=== PATIENT | male | born 1945 ===

== ENCOUNTER 2024-12-29 11:23 | Outpatient (AMB) | payer MEDICARE, SELFPAY ==
--- OUTSIDE RECORDS SUMMARY | 2024-12-27 07:59 | XMS_ITS | Encounter Summary ---
Author Organization [facility] Address [address] [place] [address] Care Team Providers Care Funeral Location Manager Name Role Phone Chana Rivera DO Primary Care Provider [phone] Reason for Referral * Imaging (Routine) - Authorized Specialty Diagnoses / Procedures Referred By Contac t Referred To Contact Radiology Diagnoses Lung nodules Procedures CT Chest wo Contrast Julio Maher MD [address] [place] [address] Phone: tel: fax: [facility] [address] [place] [address] Phone: tel: Referral ID Status Reason Start Date Expiration Date V isits Requested Visits Authorized [id number] Authorized 11/29/2024 11/29/2025 1 1 Reason for Visit * Imaging (Routine) - Authorized Specialty Diagnoses / Procedures Referred By Contac t Referred To Contact Radiology Diagnoses Lung nodules Procedures CT Chest wo Contrast Julio Maher MD [address] [place] [address] Phone: tel: fax: [facility] [address] [place] [address] Phone: tel: Referral ID Status Reason Start Date Expiration Date V isits Requested Visits Authorized [id number] Authorized 11/29/2024 11/29/2025 1 1 Encounter Details Date Type Department Care Team (Latest Contact Info) Description 12/27/2024 7:59 AM EST - 12/27/2024 11:59 PM EST Hospital Encounter [facility] [address] [place] [address] Lung nodules Discharge Disposition: Home or Self Care Social History Tobacco Use Types Packs/Day Years Used Date Smoking Tobacco: Former Cigarettes 0.8 Q uit: 04/09/2021 Smokeless Tobacco: Former Alcohol Use Standard Drinks/Week Comments Yes 2 (1 standard drink = 0.6 oz pur e alcohol) Sex and Gender Information Value Date Recorded Sex Assigned at Male 12/30/2023 9:50 AM EST Legal Sex Male 11:15 AM EST Gender Identity Male 12/30/2023 9:50 AM EST Sexual Orientation Straight 01/19/2024 9: 07 AM EST documented as of this encounter Medications at Time of Discharge albuterol HFA (PROAIR HFA ; PROVENTIL HFA ; VENTOLIN HFA) 90 mcg/actuation inhaler Inhale 2 Puffs into the lungs every 4 hours as needed for Cough or Wheezing. 06/06/2017 atorvastatin (LIPITOR) 20 mg tablet Take 1 tablet (20 mg total) by mouth 1 (one) time each day. 90 tablet 1 10/25/2024 cholecalciferol (VITAMIN D-3) 25 mcg (1,000 unit) tablet Take 1 Tablet by mouth daily. 05/27/2021 cyclobenzaprine (FLEXERIL) 10 mg tabletIndications: Spinal stenosis of lumbar region without neurogenic claudication Take 1 tablet (10 mg total) by mouth at bedtime as needed for muscle spasms. 30 tablet 1 11/25/2024 fluticasone-salmet lela (ADVAIR DISKUS) 250-50 mcg/dose diskus inhaler 10/13/2023 ibuprofen (ADVIL,MOTRIN) 600 mg tablet Take 1 tablet (600 mg total) by mouth every 6 (six) hours if needed for mild pain. 08/17/2024 lidocaine (LIDODERM) 5 % patch Apply 1 patch topically 1 (one) time each day. Remove & discard patch within 12 hours or as directed by . 30 each 11/29/2024 naproxen (NAPROSYN) 500 mg tablet Take 1 Tab by mouth 2 times daily as needed for Pain. With food 01/08/2018 sildenafiL (VIAGRA) 50 mg tablet Take 1 tablet (50 mg total) by mouth if needed for erectile dysfunction. 30 tablet 1 04/22/2024 documented as of this encounter Discharge Disposition Disposition Code Departure Means Destination Home or Self Care documented in this encounter Plan of Treatment Upcoming Encounters Date Type Department Care Team (Late st Contact Info) Description 01/02/2025 12:00 PM EST Evaluation [facility] [address] [facility] [address] [place] [phone] Rayray Brar, PT [address] [place] [address] 02/22/2025 1:00 PM EST Appointment [facility] Ultrasound [address] [place] [phone] 03/01/2025 9:30 AM EST Office Visit Pulmonology - [place] [address] [facility] [address] [place] [address] Julio Maher MD [address] [place] [phone] 03/08/2025 8:30 AM EST Office Visit Vascular Surgery - [place] [address] [facility] [address] [place] [phone] Jyothi Dacosta MD [address] [place] [phone] 04/24/2025 8:00 AM EDT Office Visit Internal Medicine - [facility] [address] [place] [address] Zbigniew Mccollum PA [address] [place] [address] Pending Results Name Type Priority Associated Diagnoses Date /Time CT Chest wo Contrast Imaging Routine Lung nodules 12/27/2024 8:22 AM EST Scheduled Orders Name Type Priority Associated Diagnoses Orde r Schedule CT Chest wo Contrast Imaging Routine Lung nodules Once for 1 Occurrences starting 12/27/2024 until 12/27/2024 documented as of this encounter Visit Diagnoses Diagnosis Lung nodules Other diseases of lung, not elsewhere classified documented in this encounter Additional Health Concerns Assessment Noted Time PHQ-9 Depression Total Score: 0 10/21/19 25 12:03 PM EDT documented as of this encounter Care Teams Funeral Location Manager Relationship Specialty Start Date End Date Chana Rivera DO [address] [place] [address] PCP - General Internal Medicine 12/23/23 documented as of this encounter
--- NOTE | 2024-12-29 11:25 | A.PHYSOV_ITS ---
Vital Signs 12/29/24 11:31 Height 5 ft 9.5 in Weight 175 lb BMI 25.5 Intake Visit Reasons: MRI followup Intake Note: Patient is a 79 year old male in office today to review MRI result. Ships Or Barges Loader Required: No Allergies No Known Allergies Allergy (Verified 12/29/24 11:26) HPI Comments Details: Mr. Sky is a 79-year-old male seen in evaluation today for right-sided low back and leg pain with paresthesias. Patient reports primarily right knee pain at a 7/10. He reports pain for the past week. Patient has been using ibuprofen for pain with good relief of his symptoms. Patient does have MRI from 2010 that does confirm moderate to severe spinal canal stenosis at L4-5, L5-S1. I ordered MRI of his lumbar spine and we are reviewing it in person today. Procedure: Right knee cortisone injection 12/29/2024 [facility] Surgical History (Updated 12/29/24 @ 11:29 by Sandra Araya MA) H/O hernia repair Social History (Updated 12/29/24 @ 11:30 by Sandra Araya MA) Household Members: Spouse Unable to assess alcohol history related to: Refusing to respond Patient Tobacco Use Status: Former Tobacco user Use of substances other than those prescribed or required for medical reasons: Yes Substance Use Type: Marijuana Review of Systems Narrative Low back pain with radiculopathy. No incontinence, saddle anesthesia urinary retention. Right knee pain, no locking or instability. Physical Exam Exam Exam: Lumbar Spine: Examination of his lumbar spine, there is no visible swelling or deformity. He is tender to lower lumbar facets. He is otherwise nontender. He has full range of motion of his lumbar spine. He does have an increase in pain with facet loading. Special Tests: Lhermittes sign was negative Heel Toe walk is normal Left straight leg raise: Negative Right straight leg raise: Negative Special tests Daphney test is negative Ganslen's test is negative SI Joint compression test negative Melvin test negative Piriformis stretch is negative Lower Extremities: Full range of motion bilateral lower extremities. He is tender to the medial joint line. No effusion. Full range of motion of his knee in flexion-extension. He has ligaments are intact. Negative Tammy test. His calf is soft and nontender. No calf pain or edema. Neuro: Sensation: Intact to lower extremities bilaterally Strength L2 (Psoas): 5/5 on the left and 5/5 on the right. L3 (Quads): 5/5 on the left and 5/5 on the right. L4 (Ant tibialis): 5/5 on the left and 5/5 on the right. L5 (EHL) 5/5 on the left and 5/5 on the right. S1 (Gastroc): 5/5 on the left and 5/5 on the right. DTR L4: (Patellar) Left 1 Right 1 S1: (Achilles) Left 1 Right 1 Babinski Downgoing No pathologic clonus. No involuntary movement. Vital Signs: BMI result Body Mass Index 25.5 Office Procedures AMB Knee Injection AMB Knee Injection Procedure Details: Right Knee injection: The risks, benefits and complications of the right knee injection were discussed with the patient including but not limited to increased serum glucose, infection, nerve pain, fat atrophy, pigment augmentation, bleeding and pain. All questions were answered to the patient's satisfaction. Verbal consent was obtained. The patient was eager to proceed. Using aseptic technique with Betadine, ethyl chloride was then used to desensitize the skin. Using a 22-gauge needle 40 mg of Kenalog and 3 mL 2% lidocaine were injected into the knee joint. A Band-Aid was applied. Patient tolerated the procedure well without immediate complication. Postinjection instructions were given. Knee Injection - : Right All charges added?: Procedure code (CPT) selection complete Office Meds Kenalog 40 mg/mL suspension for injection Performing Provider: RIKI Styles Performing Location: [facility] Administered by: RIKI Styles on 12/29/24 12:03 Dose Route Admin Location Dispensed Lot Number Expiration Date [facility] Supply Person 40 mg intra-articular 1 mL [id number] [employer] Total Dispensed Waste 1 mL 0 % lidocaine (PF) 20 mg/mL (2 %) injection solution Performing Provider: RIKI Styles Performing Location: [facility] Administered by: RIKI Styles on 12/29/24 12:03 Dose Route Admin Location Dispensed Lot Number Expiration Date [facility] Supply Person 60 mg intra-articular 50 mL [id number] Total Dispensed Waste 50 mL 0 % Assessment & Plan Assessment & Plan (1) Lumbar radiculopathy: Code(s): M54.16 - Radiculopathy, lumbar region Category: Medical (2) Lumbar spondylosis: Code(s): M47.816 - Spondylosis without myelopathy or radiculopathy, lumbar region Category: Medical (3) Primary localized osteoarthritis of right knee: Code(s): M17.11 - Unilateral primary osteoarthritis, right knee Category: Medical Plan Mr. Sky is a 79-year-old male seen in consultation today for lumbar radiculitis the right lower extremity. Patient reports his symptoms are improving. He is using ibuprofen once daily with mild relief. He is requesting a refill which I will prescribe today for twice a day. Patient should use the medication as needed as to preserve his kidney function. We will hold off on epidural injection. Patient reports increasing right knee pain. Today consented to right knee corticosteroid injection. He is given post-injection instructions, recommend: Moist heat compresses for 15 minutes 5 times daily. Continue low-impact activities such as walking, biking and swimming. We discussed the benefits of proper nutrition and exercise to maintain a healthy body weight to improve longevity and function. We also discussed the benefits of proper lifting techniques, core strengthening and proper posture. Thank you for allowing me to participate in the care of your patient. Orders: Orders AMB Knee Injection Today M17.11 - Unilateral primary osteoarthritis, right knee Medications: New ibuprofen 800 mg PO BID 60 tabs 3RF Coding Level of Care Code Tele Est Pt Level 4 (31950) Diagnoses Lumbar radiculopathy M54.16 Lumbar spondylosis M47.816 Primary localized osteoarthritis of right knee M17.11 CPT Codes AMB Knee Injection - Hip/Bursa Injection - : Right ([id number])
[2024-12-29 11:31] VITALS: BMI 25.5
--- OUTSIDE RECORDS SUMMARY | 2024-12-29 17:35 | XMS_ITS ---
Author Name [facility] Organization Unknown Care Team Organization Name Specialty Phone Email Start Date End Da te [facility]CO 09/28/2024 [facility] Zbigniew Mccollum Primary Care 01/21/202309/09 [facility] Horacio Nunes Primary Care 07/18/20222023 [facility] PATRICA Camarillo Primary Care 04/16/202209/09 [facility] Palomo Mensah Primary Care 12/17/20212023
--- OUTSIDE RECORDS SUMMARY | 2024-12-29 17:35 | XMS_ITS | Clinical Summary ---
Author Organization [facility] Address [address] [place] [address] Phone Care Team Providers Care Motion Picture Critic Name Role Phone Chana Rivera DO Primary Care Provider [phone] Allergies No known active allergies Medications albuterol HFA (PROAIR HFA ; PROVENTIL HFA ; VENTOLIN HFA) 90 mcg/actuation inhaler Inhale 2 Puffs into the lungs every 4 hours as needed for Cough or Wheezing. 8 Active cholecalciferol (VITAMIN D-3) 25 mcg (1,000 unit) tablet Take 1 Tablet by mouth daily. 2 Active fluticasone-salme terol (ADVAIR DISKUS) 250-50 mcg/dose diskus inhaler 4 Active naproxen (NAPROSYN) 500 mg tablet Take 1 Tab by mouth 2 times daily as needed for Pain. With food 8 Active sildenafiL (VIAGRA) 50 mg tablet Take 1 tablet (50 mg total) by mouth if needed for erectile dysfunction. 30 tablet 1 5 Active ibuprofen (ADVIL,MOTRIN) 600 mg tablet Take 1 tablet (600 mg total) by mouth every 6 (six) hours if needed for mild pain. 5 Active atorvastatin (LIPITOR) 20 mg tablet Take 1 tablet (20 mg total) by mouth 1 (one) time each day. 90 tablet 1 5 Active cyclobenzaprine (FLEXERIL) 10 mg tabletIndications :Spinal stenosis of lumbar region without neurogenic claudication Take 1 tablet (10 mg total) by mouth at bedtime as needed for muscle spasms. 30 tablet 1 5 07/24/19 26 Active lidocaine (LIDODERM) 5 % patch Apply 1 patch topically 1 (one) time each day. Remove & discard patch within 12 hours or as directed by MD. 30 each 5 12/30/19 25 Active cyclobenzaprine (FLEXERIL) 10 mg tablet Take 1 tablet (10 mg total) by mouth at bedtime as needed for muscle spasms for up to 15 days. 15 each 5 Active ibuprofen (ADVIL,MOTRIN) 800 mg tablet Take 1 tablet by mouth every 6-8 hours as needed for pain. 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/26/2024 Dysphagia 03/15/2020 Overview (2024): Mild, possibly related to osteophytosis of cervical spine, may follow-up with neurosurgery if significant symptoms Abnormal MRI, thoracic spine 12/31/2019 Overview (2024): [facility] neurosurgery; Stable 12/29-10/30; per patient, no further follow-up needed Unilateral inguinal hernia without obstruction o r gangrene 08/22/2019 Lung nodules 12/23/2018 Overview (2024): Dr Maher following PAD (peripheral artery disease) ([facility] V24) Carpal tunnel syndrome 01/11/2015 Overview (2024): Per prior EMG; asymptomatic Neuropathy 01/11/2015 Aortic ectasia ([facility] V24) 11/27/2014 Left carotid artery stenosis 11/27/2014 Overview (2024): [facility] following Spinal stenosis 07/24/2011 ANGY (obstructive sleep apnea) 10/04/2009 Overview (2024): Dr Maher 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 Overview (2024): Per pt; sees Dr Rowland; IgA and tissue TGA abs negative Dermatographia 03/23/2008 Overview (2024): Dr Rowland Chronic obstructive pulmonar y disease ([facility] V24, [facility] V28) 03/21/2008 Overview (2024): Dr Maher Impaired fasting glucose 03/21/2008 Encounters Date Type Department Care Team Description 12/27/2024 7:59 AM EST - 12/27/2024 11:59 PM EST Hospital Encounter [facility] CT Scan [address] [place] [phone] Lung nodules Discharge Disposition: Home or Self Care 12/10/2024 8:51 AM EDT - 12/10/2024 11:59 PM EDT Hospital Encounter [facility] MRI [address] [place] [phone] Radiculopathy, lumbar region Discharge Disposition: Home or Self Care 11/29/2024 11:44 AM EDT - 11/29/2024 1:35 PM EDT Emergency [facility] Emergency [address] [place] [phone] Neck muscle spasm (Primary Dx) Discharge Disposition: Home or Self Care 11/29/2024 9:45 AM EDT Office Visit Pulmonology - [place] [address] [facility] [address] [place] [phone] Julio Mahre MD Lung nodules (Primary Dx); ANGY (obstructive sleep apnea); Emphysema of lung ([facility] V24, [facility] V28); Acute nonintractable headache, unspecified headache type 11/22/2024 Telephone Internal Medicine - [facility] [address] [place], [place] [phone] Chana Rivera DO 10/25/2024 9:06 AM EDT - 10/25/2024 11:59 PM EDT Hospital Encounter Xray - [facility] [address] [place], [place] [phone] Spinal stenosis of lumbar region without neurogenic claudication Discharge Disposition: Home or Self Care 10/25/2024 8:30 AM EDT Office Visit Internal Medicine - [facility] [address] [place], [place] [phone] Zbigniew Mccollum PA Insomnia, unspecified type (Primary Dx); PAD (peripheral artery disease) (CMS/HCC V24); ANGY (obstructive sleep apnea); Pulmonary emphysema, unspecified emphysema type (CMS/HCC V24, CMS/HCC V28); Spinal stenosis of lumbar region without neurogenic claudication; Impaired fasting glucose; Immunization due 10/19/2024 9:41 AM EDT - 10/19/2024 11:59 PM EDT Hospital Encounter [facility] Ultrasound [address] [place] [address] Bilateral carotid artery stenosis Discharge Disposition: Home or Self Care from Last 3 Months Immunizations Immunization Administration Dates Next Due Influenza Quadravalent, 0.5m l (Fluzone High-dose) 65yo and older 11/14/2022,11/05/2021 Influenza Quadrivalent, 0.5m l, preservative free (Fluarix; FluLaval; Fluzone) ages 6mo and older (Afluria) 3yo and older 10/13/2019 Influenza trivalent, 0.5mL ( Fluad) 65yo and older 10/25/2024,10/29/2023 Influenza trivalent, 0.5mL ( Fluzone High-dose) 65yo and older 11/01/2020,11/06/2016,12/03/2015 Influenza trivalent, with pr eservative (Fluzone; Afluria) 6mo and older 11/08/2014,02/10/2014,10/18/2012,12/10,12/13/2008 Pneumococcal conjugate 20 va lent (Prevnar 20, PCV 20) 2mo and older 04/22/2024 Pneumococcal polysaccharide 23 valent (Pneumovax 23) 2yo and older 10/24/2010 Td Tetanus diptheria (Tdvax) 7yo and older 12/19/2020 Tdap Tetanus diptheria acell ular pertussis (Boostrix; Adacel) 7yo and older 03/23/2008 Zoster recombinant (Shingrix ) 19yo and older 07/11/2022,03/12/2022,02/23/2022 Surgical History Surgery Date Site/Laterality Comments OTHER SURGICAL HISTORY PROCEDURE: ---- OTHER ----; COMMENT: hernia repair Medical History Medical History Date Comments Pneumonia DX:Pneumonia Family History Medical History Relation Name Comments Melanoma Brother 1 Other: Other Brother 1 Pituatarity Diabetes Brother 2 Obesity Brother 2 Diabetes Brother 3 Obesity Brother 3 No Known Problems Father No Known Problems Mother No Known Problems Sister 1 COPD Sister 2 Other cancer Neg Hx Relation Name Status Comments Brother 1 Alive a/w (twin) Brother 2 Brother 3 Father Mother Sister 1 Alive Sister 2 Social History Tobacco Use Types Packs/Day Years Used Date Smoking Tobacco: Former Cigarettes 0.8 Q uit: 04/09/2021 Smokeless Tobacco: Former Tobacco Cessation:Counseling Given: Not Answered Alcohol Use Standard Drinks/Week Comments Yes 2 (1 standard drink = 0.6 oz pur e alcohol) Sex and Gender Information Value Date Recorded Sex Assigned at Male 12/30/2023 9:50 AM EST Legal Sex Male 11:15 AM EST Gender Identity Male 12/30/2023 9:50 AM EST Sexual Orientation Straight 01/19/2024 9: 07 AM EST Obstetrics History Last Filed Vital Signs Vital Sign Reading Time Taken Comments Blood Pressure 160/59 11/29/2024 10:25 AM EDT Pulse 76 11/29/2024 10:25 AM EDT Temperature 36.4 C (97.5 F) 11/29/2024 10:25 AM EDT Respiratory Rate 20 11/29/2024 10:25 AM EDT Oxygen Saturation 98% 11/29/2024 10:25 AM EDT Inhaled Oxygen Concentration - - Weight 83.9 kg (185 lb) 11/29/2024 10:25 AM EDT Height 175.3 cm (5' 9 ) 11/29/2024 10:25 AM EDT Body Mass Index 27.32 11/29/2024 10:25 AM EDT Plan of Treatment Upcoming Encounters Date Type Department Care Team (Late st Contact Info) Description 01/02/2025 12:00 PM EST Evaluation [facility] - [place] [address] [facility] [address] [place] [phone] Rayray Brar, PT [address] [place] [address] 02/22/2025 1:00 PM EST Appointment [facility] Ultrasound [address] [place] [phone] 03/01/2025 9:30 AM EST Office Visit Pulmonology - [place] [address] [facility] [address] [place] [phone] Julio Maher MD [address] [place] [phone] 03/08/2025 8:30 AM EST Office Visit Vascular Surgery - [place] [address] [facility] [address] [place] [phone] Jyothi Dacosta MD [address] [place] [phone] 04/24/2025 8:00 AM EDT [facility] [address] [place] [phone] Zbigniew Mccollum PA [address] [place] [address] Health Maintenance Due Date Last Done Comments RSV Immunization Adult Patients (1 - 1-dose 75+ series) 2021 Falls Risk Assessment 01/18/2022 Social Influencers of Health Screening 01/18/2022 COVID-19 Vaccine ( season) 2024 11/27/2023, 11/14/2022, 07/11/2022, Additional history exists Medicare Annual Wellness Visit 10/28/2024 10/29/2023 Cholesterol Screening (Lipid Panel) 04/12/2027 04/11/2022 DTaP,Tdap,and Td Vaccines (3 - Td or Tdap) 12/19/2030 12/19/2020, 03/23/2008 Hepatitis C Screening Completed 01/11/2018 Zoster Vaccines Completed 07/11/2022, 0202/2022, 02/23/2022 Pneumococcal Vaccine: 50+ Years Completed 04/22/2024, 10/24/2010 Depression Screening Completed 10/20/2024, 10/29/19 24 Influenza Vaccine Completed 10/25/2024, , 11/14/2022, Additional history exists HIB Vaccines Aged Out No longer eligi ble based on patient's age to complete this topic HPV Vaccines Aged Out No longer eligi ble based on patient's age to complete this topic Hepatitis A Vaccines Aged Out No long er eligible based on patient's age to complete this topic Hepatitis B Vaccines Aged Out No long er eligible based on patient's age to complete this topic IPV Vaccines Aged Out No longer eligi ble based on patient's age to complete this topic MMR Vaccines Aged Out No longer eligi ble based on patient's age to complete this topic Meningococcal ACWY Vaccine Aged Out N o longer eligible based on patient's age to complete this topic Meningococcal B Vaccine Aged Out No l onger eligible based on patient's age to complete this topic RSV Immunization Patients Under 20 months Aged Out No longer eligible based on patient's age to complete this topic Varicella Vaccines Aged Out No longer eligible based on patient's age to complete this topic Procedures Procedure Name Priority Date/Time Associated Diagnosis Comments MR LUMBAR SPINE WO CONTRAST Routine 12/10/2024 10:29 AM EDT Radiculopathy, lumbar region XR CERVICAL SPINE 2-3 VIEWS STAT 11/29/2024 12:42 PM EDT XR LUMBAR SPINE 4+ VIEWS Routine 10/25/2024 9:13 AM EDT Spinal stenosis of lumbar region without neurogenic claudication COMPREHENSIVE METABOLIC PANEL Routine 10/25/2024 8:59 AM EDT PAD (peripheral artery disease) (CMS/HCC V24) VAS US DUPLEX CAROTID BILATERAL Routine 10/19/2024 10:24 AM EDT Bilateral carotid artery stenosis HM DEPRESSION SCREENING Routine 10/29/2023 LIPID PANEL Routine 04/11/2022 HEPATITIS C SCREENING Routine 01/11/2018 from Last 3 Months or Most Recently Relevant to Health Maintenance Results * MR Lumbar Spine wo Contrast (12/10/2024 10:29 AM EDT) Anatomical Region Laterality Modality L-spine, Spine Magnetic Resonan ce 12/13/2024 12:4 5 PM EST Impressions 12/13/2024 12:55 PM EST Multilevel degenerative changes of the lumbar spine as detailed above. -------- FINAL REPORT -------- Dictated By: Ten Kimbrough Dictated Date: 12/13/2024 12:45 ET Assigned Physician: Ten Kimbrough Reviewed and Electronically Signed By: Ten Kimbrough Signed Date: 12/13/2024 12:55 ET Workstation ID: [id number] Transcribed By: Self Edit Transcribed Date: 12/13/2024 12:45 ET Narrative 12/13/2024 12:55 PM EST PROCEDURE: MRI of the lumbar spine without contrast. TECHNIQUE: Multiplanar multisequence MRI of the lumbar spine without intravenous contrast administration. HISTORY: Radiculopathy lumbar region COMPARISON: Radiographs dated 10/25/2024. FINDINGS: Bilateral renal cortical cysts. Moderate paraspinous muscular atrophy. No other paraspinous soft tissue findings. No concerning marrow infiltrative lesion. Scattered Modic endplate changes. Straightening of the typical lumbar lordosis. Mild Baastrup's disease. Normal position of the conus at L1. Lumbar disc levels: L1-2: Only imaged in the sagittal plane. Moderate anterior endplate osteophytes. Mild endplate irregularity. Mild bilateral facet arthropathy. No spinal or foraminal stenosis. L2-3: Moderate endplate irregularity with mild posterior disc space height loss. Prominent anterior endplate osteophytes. Small symmetric disc osteophyte complex. Mild bilateral facet arthropathy with mild bilateral ligamentum flavum hypertrophy and slight widening of the left facet joint. Mild spinal stenosis. Mild bilateral foraminal stenosis. L3-4: Moderate endplate irregularity. Prominent anterior endplate osteophytes. Minimal symmetric disc osteophyte complex. Mild bilateral facet arthropathy. No significant spinal or foraminal stenosis. L4-5: Mild endplate irregularity. Moderate anterior endplate osteophytes. Small disc osteophyte complex slightly eccentric to the left. Moderate bilateral facet arthropathy. No significant spinal stenosis. Mild left foraminal stenosis. L5-S1: Mild disc space height loss with moderate endplate irregularity and prominent anterior endplate osteophytes. Small symmetric disc osteophyte complex. Mild bilateral facet arthropathy. No spinal stenosis. Moderate-severe bilateral foraminal stenosis. Procedure Note Ten Kimbrough MD - 12/13/2024 PROCEDURE: MRI of the lumbar spine without contrast. TECHNIQUE: Multiplanar multisequence MRI of the lumbar spine withoutintravenous contrast administration. HISTORY: Radiculopathy lumbar region COMPARISON: Radiographs dated 10/25/2024. FINDINGS: Bilateral renal cortical cysts. Moderate paraspinous muscular atrophy.No other paraspinous soft tissue findings. No concerning marrow infiltrative lesion. Scattered Modic endplatechanges. Straightening of the typical lumbar lordosis. Mild Baastrup'sdisease. Normal position of the conus at L1. Lumbar disc levels: L1-2: Only imaged in the sagittal plane. Moderate anterior endplateosteophytes. Mild endplate irregularity. Mild bilateral facetarthropathy. No spinal or foraminal stenosis. L2-3: Moderate endplate irregularity with mild posterior disc space heightloss. Prominent anterior endplate osteophytes. Small symmetric discosteophyte complex. Mild bilateral facet arthropathy with mild bilateralligamentum flavum hypertrophy and slight widening of the left facet joint.Mild spinal stenosis. Mild bilateral foraminal stenosis. L3-4: Moderate endplate irregularity. Prominent anterior endplateosteophytes. Minimal symmetric disc osteophyte complex. Mild bilateralfacet arthropathy. No significant spinal or foraminal stenosis. L4-5: Mild endplate irregularity. Moderate anterior endplate osteophytes.Small disc osteophyte complex slightly eccentric to the left. Moderatebilateral facet arthropathy. No significant spinal stenosis. Mild leftforaminal stenosis. L5-S1: Mild disc space height loss with moderate endplate irregularity andprominent anterior endplate osteophytes. Small symmetric disc osteophytecomplex. Mild bilateral facet arthropathy. No spinal stenosis.Moderate-severe bilateral foraminal stenosis. IMPRESSION: Multilevel degenerative changes of the lumbar spine as detailed above. -------- FINAL REPORT -------- Dictated By: Ten Kimbrough Dictated Date: 12/13/2024 12:45 ET Assigned Physician: Ten Kimbrough Reviewed and Electronically Signed By: Ten Kimbrough Signed Date: 12/13/2024 12:55 ET Workstation ID: [id number] Transcribed By: Self Edit Transcribed Date: 12/13/2024 12:45 ET us Jw LYN IMG MRI PROCEDURES Final Resul t * XR Cervical Spine 2-3 Views (11/29/2024 12:42 PM EDT) Anatomical Region Laterality Modality Spine, C-spine Radiographic Elizabeth ging 11/29/2024 12:5 0 PM EDT Impressions 11/29/2024 12:52 PM EDT FINDINGS/IMPRESSION: Severe DISH and anterior osteophytes appears to have some mass effect on the hypopharynx. If there is desire evaluate how this might affect function recommend follow-up with barium swallow examination. No acute fracture is evident. Straightening of the spine with facet arthropathy. Visualized lung apices are unremarkable. -------- FINAL REPORT -------- Dictated By: Aly Lepe Dictated Date: 11/29/2024 12:50 ET Assigned Physician: Aly Lepe Reviewed and Electronically Signed By: Aly Lepe Signed Date: 11/29/2024 12:52 ET Workstation ID: [id number] Transcribed By: Self Edit Transcribed Date: 11/29/2024 12:50 ET Narrative 11/29/2024 12:52 PM EDT XR CERVICAL SPINE 2-3 VIEWS INDICATION: pain TECHNIQUE: XR CERVICAL SPINE 2-3 VIEWS COMPARISON: None Procedure Note Aly Lepe MD - 11/29/2024 XR CERVICAL SPINE 2-3 VIEWS INDICATION: pain TECHNIQUE: XR CERVICAL SPINE 2-3 VIEWS COMPARISON: None IMPRESSION: FINDINGS/IMPRESSION: Severe DISH and anterior osteophytes appears to havesome mass effect on the hypopharynx. If there is desire evaluate how thismight affect function recommend follow-up with barium swallow examination.No acute fracture is evident. Straightening of the spine with facetarthropathy. Visualized lung apices are unremarkable. -------- FINAL REPORT -------- Dictated By: Aly Lepe Dictated Date: 11/29/2024 12:50 ET Assigned Physician: Aly Lepe Reviewed and Electronically Signed By: Aly Lepe Signed Date: 11/29/2024 12:52 ET Workstation ID: [id number] Transcribed By: Self Edit Transcribed Date: 11/29/2024 12:50 ET us Vincenzo LYN IMG XR PROCEDURES Final Res ult * XR Lumbar Spine 4+ Views (10/25/2024 9:13 AM EDT) Anatomical Region Laterality Modality Spine, L-spine Radiographic Elizabeth ging 10/25/2024 9:25 AM EDT Impressions 10/25/2024 9:46 AM EDT Severe degenerative changes of the lumbar spine. -------- FINAL REPORT -------- Dictated By: Shira Appiah Dictated Date: 10/25/2024 09:25 ET Assigned Physician: Shira Appiah Reviewed and Electronically Signed By: Shira Appiah Signed Date: 10/25/2024 09:46 ET Workstation ID: [id number] Transcribed By: Self Edit Transcribed Date: 10/25/2024 09:25 ET Narrative 10/25/2024 9:46 AM EDT HISTORY: lower back pain TECHNIQUE: 4 views of the lumbar spine COMPARISON: Lumbar spine radiograph from 01/02/2018 FINDINGS: Vertebral body height is grossly preserved. Decreased disc height at multiple levels with endplate sclerosis. No evidence of spondylolisthesis. Very large anterior osteophytes present at multiple levels. Chronic compression deformity at T11. Moderate facet arthropathy of the lumbar spine. Severe narrowing of the lumbar spine at multiple levels. Mild subchondral sclerosis of the bilateral sacroiliac joints. Large amount stool throughout the colon. Procedure Note Shira Appiah MD - 10/25/2024 HISTORY: lower back pain TECHNIQUE: 4 views of the lumbar spine COMPARISON: Lumbar spine radiograph from 01/02/2018 FINDINGS: Vertebral body height is grossly preserved. Decreased disc height atmultiple levels with endplate sclerosis. No evidence of spondylolisthesis.Very large anterior osteophytes present at multiple levels. Chroniccompression deformity at T11. Moderate facet arthropathy of the lumbarspine. Severe narrowing of the lumbar spine at multiple levels. Mildsubchondral sclerosis of the bilateral sacroiliac joints. Large amountstool throughout the colon. IMPRESSION: Severe degenerative changes of the lumbar spine. -------- FINAL REPORT -------- Dictated By: Shira Appiah Dictated Date: 10/25/2024 09:25 ET Assigned Physician: Shira Appiah Reviewed and Electronically Signed By: Shira Appiah Signed Date: 10/25/2024 09:46 ET Workstation ID: [id number] Transcribed By: Self Edit Transcribed Date: 10/25/2024 09:25 ET us Zbigniew LYN IMG XR PROCEDURES Final Result * (ABNORMAL) Comprehensive metabolic panel (10/25/2024 8:59 AM EDT) Sodium 138 133 - 145 mmol/L LAB CHEMISTRY METHOD 10/25/2024 12:21 PM EDT [facility] Potassium 4.5 3.5 - 5.5 mmol/L LAB CHEMISTRY METHOD 10/25/2024 12:21 PM EDT [facility] Chloride 106 96 - 110 mmol/L LAB CHEMISTRY METHOD 10/25/2024 12:21 PM [facility] CO2 27 21 - 32 mmol/L LAB CHEMISTRY METHOD 10/25/2024 12:21 PM [facility] Anion Gap 5 3 - 11 LAB CHEMISTRY METHOD 10/25/2024 12:21 PM [facility] Glucose 102(H) 70 - 100 mg/dL LAB CHEMISTRY METHOD 10/25/2024 12:21 PM [facility] BUN 18 5 - 25 mg/dL LAB CHEMISTRY METHOD 10/25/2024 12:21 PM [facility] Creatinine 1.08 0.70 - 1.30 mg/dL LAB CHEMISTRY METHOD 10/25/2024 12:21 PM [facility] eGFR 70 >=60 mL/min/1. 73m2 LAB CHEMISTRY METHOD 10/25/2024 12:21 PM [facility] Comment:Calculation based on the Chronic Kidney Disease Epidemiology Collaboration (CKD-EPI) equation refit without adjustment for race. BUN/Creatinine Ratio 16.7 LAB CHEMISTRY METHOD 10/25/2024 12:21 PM [facility] Calcium 9.1 8.5 - 10.5 mg/dL LAB CHEMISTRY METHOD 10/25/2024 12:21 PM [facility] AST (SGOT) 18 10 - 42 unit/L LAB CHEMISTRY METHOD 10/25/2024 12:21 PM [facility] ALT (SGPT) 24 10 - 60 unit/L LAB CHEMISTRY METHOD 10/25/2024 12:21 PM [facility] Alkaline Phosphatase 91 42 - 121 unit/L LAB CHEMISTRY METHOD 10/25/2024 12:21 PM [facility] Total Protein 6.6 6.0 - 8.0 g/dL LAB CHEMISTRY METHOD 10/25/2024 12:21 PM [facility] Albumin 3.7 3.2 - 5.0 g/dL LAB CHEMISTRY METHOD 10/25/2024 12:21 PM EDT [facility] Total Bilirubin 0.8 0.0 - 1.4 mg/dL LAB CHEMISTRY METHOD 10/25/2024 12:21 PM EDT [facility] Blood Venous blood specimen / Unknown Venipuncture / Unknown 10/25/2024 8:59 AM EDT 10/25/2024 8:59 AM EDT us Zbigniew LYN LAB BLOOD ORDERABLES Fi nal Result [facility] [address] [place] [address], [place] [phone] * Vascular US duplex carotid bilateral (10/19/2024 10:24 AM EDT) Anatomical Region Laterality Modality Vascular, Abdomen Ultrasound 10/26/2024 2:29 PM EDT Impressions 10/26/2024 2:44 PM EDT 1. 50-69 percent diameter stenosis of the proximal left ICA based on peak systolic velocity criteria, without significant change. 2. No hemodynamically significant right ICA stenosis. 3. High resistance waveform in the left vertebral artery, consistent with underlying vertebrobasilar disease. This is similar to the more recent studies, but new since 2019. Measurement of carotid stenosis is based on velocity parameters that correlate the residual internal carotid diameter with [place] Symptomatic Carotid Endarterectomy Trial (NASCET)-based stenosis levels and velocity criteria are extrapolated from diameter data as defined by the Society of Radiologists in Ultrasound Consensus Conference Radiology 2003; 229;340-346.? [place] ([id number]) -------- FINAL REPORT -------- Dictated By: Gracie Laughlni Dictated Date: 10/26/2024 14:29 ET Assigned Physician: Gracie Laughlin Reviewed and Electronically Signed By: Gracie Laughlin Signed Date: 10/26/2024 14:44 ET Workstation ID: [id number] Transcribed By: Self Edit Transcribed Date: 10/26/2024 14:29 ET Narrative 10/26/2024 2:44 PM EDT HISTORY: Carotid stenosis. COMPARISON: 12/21/23 an earlier exams dating back to 2018 TECHNIQUE: Duplex and color Doppler imaging of the bilateral extracranial carotid arterial systems was performed. FINDINGS: Right: Diaz scale images show diffuse intimal thickening and small, scattered foci of calcified and noncalcified plaque in the carotid bulb. The peak systolic velocity is 110.6 cm/sec in the proximal internal carotid. Right CCA 81.4 cm/sec Right ECA 281.3 cm/sec Ratio of right ICA/CCA 1.4 Left: Diaz scale images show diffuse intimal thickening and minimal soft plaque in the carotid bulb. The peak systolic velocity is 174.3 cm/sec in the proximal internal carotid. Left CCA 109.0 cm/sec Left ECA 120.0 cm/sec Ratio of left ICA/CCA 1.6 There are normal end diastolic velocities bilaterally. There is absent forward diastolic flow in the left vertebral artery (high resistance waveform), similar to the previous exam. Normal antegrade flow is seen within the right vertebral artery. Procedure Note Gracie Laughlin MD - 10/26/2024 HISTORY: Carotid stenosis. COMPARISON: 12/21/23 an earlier exams dating back to 2017 TECHNIQUE: Duplex and color Doppler imaging of the bilateral extracranial carotidarterial systems was performed. FINDINGS: Right: Diaz scale images show diffuse intimal thickening and small, scatteredfoci of calcified and noncalcified plaque in the carotid bulb. The peak systolic velocity is 110.6 cm/sec in the proximal internalcarotid. Right CCA 81.4 cm/sec Right ECA 281.3 cm/sec Ratio of right ICA/CCA 1.4 Left: Diaz scale images show diffuse intimal thickening and minimal soft plaquein the carotid bulb. The peak systolic velocity is 174.3 cm/sec in the proximal internalcarotid. Left CCA 109.0 cm/sec Left ECA 120.0 cm/sec Ratio of left ICA/CCA 1.6 There are normal end diastolic velocities bilaterally. There is absent forward diastolic flow in the left vertebral artery (highresistance waveform), similar to the previous exam. Normal antegrade flowis seen within the right vertebral artery. IMPRESSION: 1. 50-69 percent diameter stenosis of the proximal left ICA based on peaksystolic velocity criteria, without significant change. 2. No hemodynamically significant right ICA stenosis. 3. High resistance waveform in the left vertebral artery, consistent withunderlying vertebrobasilar disease. This is similar to the more recentstudies, but new since 2019. Measurement of carotid stenosis is based on velocity parameters thatcorrelate the residual internal carotid diameter with North AmericanSymptomatic Carotid Endarterectomy Trial (NASCET)-based stenosis levelsand velocity criteria are extrapolated from diameter data as defined bythe Society of Radiologists in Ultrasound Consensus Conference [id number]; 229;340-346.? [place] ([id number]) -------- FINAL REPORT -------- Dictated By: Gracie Laughlin Dictated Date: 10/26/2024 14:29 ET Assigned Physician: Gracie Laughlin Reviewed and Electronically Signed By: Gracie Laughlin Signed Date: 10/26/2024 14:44 ET Workstation ID: [id number] Transcribed By: Self Edit Transcribed Date: 10/26/2024 14:29 ET Result [facility] Jyothi Dacosta MD CV VASCULAR PROCEDURES Fi nal Result * Depression Screening (10/29/2023) [facility] Depression Screening Abstracted Result [facility] Provider HEALTH MAINTENANCE Final Result * Lipid panel (04/11/2022) [facility] LDL/HDL Ratio 2 0 - 4 Triglycerides 49 0 - 150 mg/dL Cholesterol 121 0 - 200 mg/dL HDL 73 >=40 mg/dL LDL Cholesterol 39 0 - 100 mg/dL Blood Venous blood specimen / Unknown Result [facility] Historical Provider LAB BLOOD ORDERABLES Kandy l Result * Hepatitis C Screening (01/11/2018) [facility] Hepatitis C Screening Abstracted Result [facility] Provider HEALTH MAINTENANCE Final Result from Last 3 Months or Most Recently Relevant to Health Maintenance Insurance MEDICARE [facility] Care Teams Motion Picture Critic Relationship Specialty Start Date End Date Chana Rivera DO [address] [place] [address] PCP - General Internal Medicine 12/23/23
--- OUTSIDE RECORDS SUMMARY | 2024-12-29 17:35 | XMS_ITS | Patient Health Record ---
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) Active confirmed Problem Hammer toe (527918150) Hammer toe (735.4) Active confirmed Problem Metatarsalgia (86993459) Metatarsalgia (726.70) Active confirmed Problem Myositis (64394493) Myositis (729.1) Active confirmed Problem Pain in limb (79897162) Pain in Limb (729.5) Active confirmed Problem Plantar fasciitis (291764042) Plantar Fasciitis (728.71) Active confirmed Problem Calcaneal spur (59031654) Calcaneal spur (726.73) Active confirmed Plan Of Treatment No Information Insurance Providers Payer Name Payer Address Payer Phone Subscriber Number Group Number Insured Name Patient Relationship to Insured Coverage Start Date Coverage End Date Medicare [employer] [address] [place] [phone] [id number] Ad Chi Self - patient is the insured [facility] [address] [place] [address] [id number] Ad Chi Self - patient is the insured Medical (General) History Medical History History ICD Code Emphysema
--- OUTSIDE RECORDS SUMMARY | 2024-12-29 17:35 | XMS_ITS | Clinical Summary ---
Author Organization [facility] Address [address] [place] [address] Care Team Providers Care Visitor Service Assistant Name Role Phone Gaurav Bernardo MD Primary Care Provider [phone] Social History Tobacco Use Types Packs/Day Years Used Date Smoking Tobacco: Never Assessed Sex and Gender Information Value Date Recorded Sex Assigned at Not on file Gender Identity Not on file Sexual Orientation Not on file Job Start Date Occupation Industry Not on file Not on file Not on file Plan of Treatment Health Maintenance Due Date Last Done Comments Hepatitis C Screening 1945 COVID-19 Vaccine (#1) 1945 Depression Screening 1958 Preventative Health Evaluation 01/18/1964 Shingrix-Zoster Vaccine (1 of 2) 01/18/1996 Fall Risk Assessment 2011 Pneumococcal Vaccine (2 of 2 - PCV) 10/25/2011 10/24/2010 DTap / Tdap / Td (2 - Td or Tdap) 03/23/2018 03/23/2008 RSV Adult > 60+ Yrs or (1 - 1-dose 75+ series) 2021 Influenza Vaccine (#1) 2024 7, 12/03/2015, 11/08/2014, Additional history exists Hepatitis B Vaccines Aged Out No long er eligible based on patient's age to complete this topic RSV Ped < 20 months Aged Out No longe r eligible based on patient's age to complete this topic Care Teams Visitor Service Assistant Relationship Specialty Start Date End Date Gaurav Bernardo MD [address] [place] [id number] PCP - General Internal Medicine 02/21/20
== END 2024-12-29 12:13 | disposition home or self-care (01) ==
LOC: HO.HPHYS 11:23
PROVIDERS: PCP Internal Medicine; Visit Provider Physician Assistant
DX: M54.16 Radiculopathy, lumbar region (principal); M47.816 Spondylosis without myelopathy or radiculopathy, lumbar region; M17.11 Unilateral primary osteoarthritis, right knee
CPT/HCPCS: 20610; 99214

== ENCOUNTER → 2024-12-29 11:23 | Outpatient (BNVA) | payer MEDICARE, SELFPAY | PROVIDERS: PCP Internal Medicine; Visit Provider Physician Assistant | DX: M54.16 Radiculopathy, lumbar region (principal); M47.816 Spondylosis without myelopathy or radiculopathy, lumbar region; M17.11 Unilateral primary osteoarthritis, right knee | CPT/HCPCS: 20610; 99212; J2003; J3301 ==

== ENCOUNTER 2025-01-10 09:47 | Outpatient (AMB) | payer MEDICARE, SELFPAY ==
[2025-01-10 09:55] VITALS: BMI 25.6
--- NOTE | 2025-01-10 09:55 | A.PHYSOV ---
Vital Signs 01/10/25 09:55 Height 5 ft 9.5 in Weight 176 lb BMI 25.6 Intake Visit Reasons: increased pain rt knee Intake Note: Patient is a 79 year old male here for pain in his right leg. Patient states it is severe in his hip and knee. Engineering Supplies Sales Required: No Allergies No Known Allergies Allergy (Verified 01/10/25 09:59) HPI Comments Details: History of Present Illness The patient is a 79 year old individual presenting for evaluation of persistent right leg pain, which the patient localizes to the knee. The patient reports that a prior knee injection on December 29 did not provide relief and describes the pain as radiating up to the hip and down to the ankle. The patient denies experiencing back pain, groin pain, tingling, or numbness. For pain management at home, the patient uses Tylenol for arthritis and has also taken 800 mg ibuprofen. The patient is careful with medication and expresses a desire to avoid addiction. The patient has never had an x-ray of the knee. Patient has failed conservative treatment. We do have MRI of his lumbar spine does confirm severe neuroforaminal stenosis bilaterally at L5-S1. Pain Description - Location: The patient reports pain inside the right knee, in the muscle just above the knee, with radiation up towards the hip and down to the ankle. - Exacerbating Factors: Pain is significantly worsened with external rotation of the hip. - Alleviating Factors: The patient takes Tylenol and ibuprofen for pain. - Associated Symptoms: The patient reports the back feeling tight and legs feeling weak when leaning backward. [facility] Surgical History H/O hernia repair Social History Household Members: Spouse Patient Tobacco Use Status: Former Tobacco user Substance Use Type: Marijuana Review of Systems Narrative Review of Systems - Musculoskeletal: Reports right knee pain radiating to the hip and ankle, pain in the muscle above the knee, and back tightness. Reports leg weakness when leaning backward. Denies groin pain. - Neurological: Denies tingling or numbness in the leg. - Constitutional: Denies back pain. Physical Exam Exam Exam: Physical Exam Lumbar Spine: Examination of his lumbar spine, there is no visible swelling or deformity. He is tender to the right lower lumbar facets. He is otherwise nontender. Full range of motion of the lumbar spine. He does have an increase in pain with facet loading. Special Tests: Lhermittes sign was negative Heel Toe walk is normal Left straight leg raise: Negative Right straight leg raise: Positive right Special tests Daphney test is negative Ganslen's test is negative SI Joint compression test negative Melvin test negative Piriformis stretch is negative Lower Extremities: Full range of motion bilateral lower extremities. No calf pain or edema. Neuro: Sensation: Intact to lower extremities bilaterally Strength L2 (Psoas): 5/5 on the left and 5/5 on the right. L3 (Quads): 5/5 on the left and 5/5 on the right. L4 (Ant tibialis): 5/5 on the left and 5/5 on the right. L5 (EHL) 5/5 on the left and 5/5 on the right. S1 (Gastroc): 5/5 on the left and 5/5 on the right. DTR L4: (Patellar) Left 2 Right 2 S1: (Achilles) Left 2 Right 2 Babinski Downgoing No pathologic clonus. No involuntary movement. Vital Signs: BMI result Body Mass Index 25.6 Assessment & Plan Assessment & Plan (1) Lumbar radiculopathy: Code(s): M54.16 - Radiculopathy, lumbar region Category: Medical (2) Lumbar spondylosis: Code(s): M47.816 - Spondylosis without myelopathy or radiculopathy, lumbar region Category: Medical (3) Primary localized osteoarthritis of right knee: Code(s): M17.11 - Unilateral primary osteoarthritis, right knee Category: Medical Plan Pain Management - Affect: The patient reports feeling not so good due to the pain. - Analgesia: The patient is currently using [id number] medications, including Tylenol for arthritis and 800 mg ibuprofen. - Activities of Daily Living: Not discussed in detail. - Adverse Effects: Not discussed. - Aberrant Drug Related Behaviors: The patient expressed concern about addiction and is careful about what medications are taken. Plan Patient was informed and verbally consented to the use of an ambient scribe for clinic note documentation during this visit. 1. Right Leg Pain The patient presents with right leg pain that is attributed to the knee, but the radiation pattern up to the hip and down to the ankle, along with a lack of relief from a prior intra-articular knee injection, is more suggestive of lumbar radiculopathy. The working diagnosis is a pinched nerve in the back, given the patient has severe narrowing where the nerve exits the spinal column. The plan is to order a therapeutic back injection to be performed by Dr. Lara, which will serve to both diagnose and treat the suspected radicular pain. I recommend right L5 TFESI he is eager to proceed. We will obtain prior authorization for his injection contact him once we have done so. Additionally, an X-ray of the right knee will be ordered to investigate the patient's primary concern. The patient will continue with the current regimen of home pain medications. Discussion Notes I discussed with the patient that while they feel pain in the knee, the symptoms of pain shooting up and down the leg are more characteristic of a nerve problem, likely originating from a pinched nerve in the back due to severe narrowing. I explained that the lack of relief from the previous knee injection strongly suggests the pain is not primarily from the knee joint itself, as the medication would have spread throughout the joint. We agreed on a plan to investigate both possibilities: I will order an injection for the low back to address the suspected nerve issue, and I will also order an X-ray of the right knee to address the patient's direct concerns. I informed the patient that it is too early for another knee injection per guidelines and that a hip X-ray seems unnecessary as the physical exam did not point to hip pathology. We also discussed pain management, and the patient will continue with their current home medications, as they wish to avoid stronger, potentially addictive prescriptions. The patient understood the rationale and consented to the plan. Patient Instructions - We will order an X-ray of your right knee to investigate your concerns. - We will also order an injection for your lower back, which will be performed here by Dr. Lara. Our office will request authorization from your insurance for this procedure. - Continue taking your current pain medications as needed at home. - We cannot give you another shot in your knee at this time because it is too soon after your last one. - We will follow up after these procedures are done to get you better. Orders: Orders XR knee RT 4V Today M25.569 - Pain in unspecified knee Coding Level of Care Code Tele Est Pt Level 4 (85091) Diagnoses Lumbar radiculopathy M54.16 Lumbar spondylosis M47.816 Primary localized osteoarthritis of right knee M17.11
--- OUTSIDE RECORDS SUMMARY | 2025-01-10 10:52 | XMS_ITS | Clinical Summary ---
Author Organization [facility] Address [address] [place] [address] Phone Care Team Providers Care Radiology Receptionist Name Role Phone Chana Rivera DO Primary Care Provider [phone] Allergies No known active allergies Medications albuterol [...] 30 tablet 1 5 07/24/19 26 Active cyclobenzaprine (FLEXERIL) 10 mg tablet Take 1 tablet (10 mg total) by mouth at bedtime as needed for muscle spasms for up to 15 days. 15 each 5 Active lidocaine (LIDODERM) 5 % patch Apply 1 patch topically 1 (one) time each day. Remove & discard patch within 12 hours or as directed by MD. 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 Overview (2024): Per pt; sees Dr Rowland; IgA and tissue TGA abs negative Dermatographia 03/23/2008 Overview (2024): Dr Rowland Chronic obstructive pulmonar y disease ([facility] V24, [facility] V28) 03/21/2008 Overview (2024): Dr Maher Impaired fasting glucose 03/21/2008 Encounters Date Type Department Care Team Description 01/04/2025 10:15 AM EST Lab Draw Station - [address] [place] [phone] Lymphadenopathy 01/04/2025 9:45 AM EST Office Visit Pulmonology - [address] [place] [phone] Percy Maher MD Lymphadenopathy (Primary Dx); Emphysema of lung ([facility] V24, [facility] V28); Obstructive sleep apnea; PORTER (dyspnea on exertion) 01/03/2025 Results Follow-Up [address]mon[address] [phone] Percy Maher MD 01/02/2025 12:00 PM EST Evaluation [address] [phone] Rayray Brar, PT Spasm of muscle (Primary Dx) 01/02/2025 Plan of Care Documentation [address] [phone] 12/27/2024 7:59 AM EST - 12/27/2024 11:59 PM EST Hospital Encounter [facility] CT Scan [address] [place] [phone] Lung nodules Discharge Disposition: Home or Self Care 12/10/2024 8:51 AM EDT - 12/10/2024 11:59 PM EDT Hospital Encounter [facility] MRI [address] [place] [phone] Radiculopathy, lumbar region Discharge Disposition: Home or Self Care 11/29/2024 11:44 AM EDT - 11/29/2024 1:35 PM EDT Emergency [facility] Emergency [address] [place] [phone] Neck muscle spasm (Primary Dx) Discharge Disposition: Home or Self Care 11/29/2024 9:45 AM EDT Office Visit Pulmonology - [place] [address] [phone] Percy Maher MD Lung nodules (Primary Dx); ANGY (obstructive sleep apnea); Emphysema of lung ([facility] V24, [facility] V28); Acute nonintractable headache, unspecified headache type 11/22/2024 Telephone Internal [facility] - [facility] [address] [facility] [place] [address] Chana Rivera DO 10/25/2024 9:06 AM EDT - 10/25/2024 11:59 PM EDT Hospital Encounter Xray - [facility] [address] [place], [place] [address] [place] [phone] Spinal stenosis of lumbar region without neurogenic claudication Discharge Disposition: Home or Self Care 10/25/2024 8:30 AM EDT Office Visit Internal Medicine - [facility] [address] [facility] [place] [address] Zbigniew Mccollum PA Insomnia, unspecified type (Primary Dx); PAD (peripheral artery disease) ([facility] V24); ANGY (obstructive sleep apnea); Pulmonary emphysema, unspecified emphysema type ([facility] V24, [facility] V28); Spinal stenosis of lumbar region without neurogenic claudication; Impaired fasting glucose; Immunization due 10/19/2024 9:41 AM EDT - 10/19/2024 11:59 PM EDT Hospital Encounter [facility] Ultrasound [address] [place] [address] Bilateral carotid artery stenosis Discharge [...] Sign Reading Time Taken Comments Blood Pressure 135/51 01/04/2025 9:47 AM EST Pulse 84 01/04/2025 9:47 AM EST Temperature 35.9 C (96.7 F) 01/04/2025 9:47 AM EST Respiratory Rate 16 01/04/2025 9:47 AM EST Oxygen Saturation 97% 01/04/2025 9:47 AM EST Inhaled Oxygen Concentration - - Weight 85 kg (187 lb 6.4 oz) 01/04/2025 9:47 AM EST Height 177.8 cm (5' 10 ) 01/04/2025 9:47 AM EST Body Mass Index 26.89 01/04/2025 9:47 AM EST Plan of Treatment Upcoming Encounters Date Type Department Care Team (Late st Contact Info) Description 01/13/2025 8:00 AM EST Office Visit Pulmonology [facility] [address] [phone] Bisi Jasmine MD [address] [place] [phone] 01/16/2025 10:30 AM EST Treatment [facility] [address] [phone] Rayray Brar, PT [address] [place] [address] 01/19/2025 10:30 AM EST Treatment [facility] [address] [phone] Rayray Brar, PT [address] [place] [address] 01/23/2025 10:30 AM EST Treatment [address] [phone] Herb Morris, GOLDSMITH APPRENTICE 01/26/2025 10:00 AM EST Treatment [address] [phone] Herb Morris, GOLDSMITH APPRENTICE 01/30/2025 10:30 AM EST Treatment [address] [phone] Herb Morris, GOLDSMITH APPRENTICE 02/01/2025 10:30 AM EST Treatment [address] [phone] Rayray Brar, PT [address] [place] [address] 02/06/2025 9:00 AM EST Office Visit Pulmonology [address] [phone] Percy Maher MD [address] [place] [phone] 02/06/2025 10:45 AM EST Treatment [address] [phone] Rayray Brar, PT [address] [place] [address] 02/08/2025 10:30 AM EST Treatment [address] [phone] Rayray Brar, PT [address] [place] [address] 02/22/2025 1:00 PM EST Appointment [facility] Ultrasound [address] [place] [phone] 03/01/2025 9:30 AM EST Office Visit Pulmonology - [place] [address] [facility] [address] [place] [phone] Percy Maher MD [address] [place] [phone] 03/08/2025 8:30 AM EST Office Visit Vascular Surgery - [place] [address] [facility] [address] [place] [phone] Jyothi Dacosta MD [address] [place] [phone] 04/24/2025 8:00 AM EDT Office Visit Internal Medicine - [facility] [address] [place] [phone] Zbigniew Mccollum PA [address] [place] [address] Health Maintenance Due Date Last Done Comments [...] Screening Completed 01/11/2018 Zoster Vaccines Completed 07/11/2022, 02/0 02/2022, 02/23/2022 Pneumococcal Vaccine: 50+ Years Completed 04/22/2024, [...] on patient's age to complete this topic Goals Goal Patient Goal Type Associated Problems Recent Progress Patient-Stated? Author move my neck better and the neck pain to go away General Yes Rayray Brar, PT PT STG x 8 visits from evny on 01/02/2025 General No Rayray Brar, PT Note: [x] = goal MET [] = goal NOT MET [] Pt will improve C rotation to 48 deg B to aid in looking over shoulder, [] Pt will improve deep neck flexor strength to 10 seconds from 2 sec PT LTG x 15 visits from evalon 01/02/2025 General No Rayray Brar, PT Note: [x] = goal MET [] = goal NOT MET [] Pt will be able to look over B shoulder without requiring trunk rotation, [] Pt will be able to look overhead for things such as placing/retrieving items on top shelf or changing light bulbs Procedures Procedure Name Priority Date/Time Associated Diagnosis Comments CBC WITH AUTO DIFFERENTIAL Routine 01/04/2025 10:21 AM EST Lymphadenopathy CBC AND DIFFERENTIAL Routine 01/04/2025 10:21 AM EST Lymphadenopathy BETA 2 MICROGLOBULIN, SERUM Routine 01/04/2025 10:21 AM EST Lymphadenopathy ANGIOTENSIN CONVERTING ENZYME Routine 01/04/2025 10:[address] CHEST WO CONTRAST Routine 12/27/2024 8:22 AM EST Lung nodules MR LUMBAR SPINE WO CONTRAST Routine 12/10/2024 [...] 10:24 AM EDT Bilateral carotid artery stenosis DEPRESSION SCREENING Routine 10/29/2023 LIPID PANEL Routine 04/11/2022 HEPATITIS C SCREENING Routine 01/11/2018 from Last 3 Months or Most Recently Relevant to Health Maintenance Results * (ABNORMAL) CBC auto differential (01/04/2025 10:21 AM EST) WBC 9.7 4.8 - 10.8 K/mcL LAB HEMETOLOGY METHOD 01/04/2025 2:29 PM EST [facility] RBC 3.70(L) 4.50 - 5.50 M/mcL LAB HEMETOLOGY METHOD 01/04/2025 2:29 PM EST [facility] Hemoglobin 12.1(L) 13.5 - 17.5 g/dL LAB HEMETOLOGY METHOD 01/04/2025 2:29 PM [facility] Hematocrit 36.2(L) 42.0 - 54.0 % LAB HEMETOLOGY METHOD 01/04/2025 2:29 PM [facility] MCV 97.3 79.0 - 98.0 FL LAB HEMETOLOGY METHOD 01/04/2025 2:29 PM [facility] MCH 32.5(H) 27.0 - 32.0 pcg LAB HEMETOLOGY METHOD 01/04/2025 2:29 PM [facility] MCHC 33.4 32.0 - 37.0 g/dL LAB HEMETOLOGY METHOD 01/04/2025 2:29 PM [facility] RDW 12.6 11.0 - 15.0 % LAB HEMETOLOGY METHOD 01/04/2025 2:29 PM [facility] Platelets 243 130 - 400 K/mcL LAB HEMETOLOGY METHOD 01/04/2025 2:29 PM [facility] MPV 9.1 7.0 - 11.0 FL LAB HEMETOLOGY METHOD 01/04/2025 2:29 PM [facility] NRBC 0.0 <1.0 % LAB HEMETOLOGY METHOD 01/04/2025 2:29 PM [facility] NRBC Absolute 0.00 <0.10 K/mcL LAB HEMETOLOGY METHOD 01/04/2025 2:29 PM [facility] Neutrophils Relative 76.0 % LAB HEMETOLOGY METHOD 01/04/2025 2:29 PM [facility] Lymphocytes Relative 12.8 % LAB HEMETOLOGY METHOD 01/04/2025 2:29 PM [facility] Monocytes Relative 7.9 % LAB HEMETOLOGY METHOD 01/04/2025 2:29 PM [facility] Eosinophils Relative 2.5 % LAB HEMETOLOGY METHOD 01/04/2025 2:29 PM EST [facility] Basophils Relative 0.5 % LAB HEMETOLOGY METHOD 01/04/2025 2:29 PM [facility] Immature Granulocytes Relative 0.3 % LAB HEMETOLOGY METHOD 01/04/2025 2:29 PM [facility] Neutrophils Absolute 7.33(H) 1.50 - 7.00 K/mcL LAB HEMETOLOGY METHOD 01/04/2025 2:29 PM [facility] Lymphocytes Absolute 1.24 1.00 - 5.00 K/mcL LAB HEMETOLOGY METHOD 01/04/2025 2:29 PM [facility] Monocytes Absolute 0.76 0.20 - 1.00 K/mcL LAB HEMETOLOGY METHOD 01/04/2025 2:29 PM EST [facility] Eosinophils Absolute 0.24 0.00 - 0.50 K/mcL LAB HEMETOLOGY METHOD 01/04/2025 2:29 PM EST [facility] Basophils Absolute 0.05 0.00 - 0.20 K/mcL LAB HEMETOLOGY METHOD 01/04/2025 2:29 PM [facility] Immature Granulocytes Absolute 0.03 0.00 - 0.03 K/mcL LAB HEMETOLOGY METHOD 01/04/2025 2:29 PM [facility] Blood Venous blood specimen / Unknown Venipuncture / Unknown 01/04/2025 10:21 AM EST 01/04/2025 10:21 AM EST us Percy Maher MD LAB BLOOD ORDERABLES Final R esult [facility] [address] [place] [address], * Angiotensin converting enzyme (01/04/2025 10:21 AM EST) Angiotensin Converting Enzyme (NANCIE) 28 8 - 52 U/L 01/09/2025 10:57 AM EST [facility] Comment: Test performed at [facility], [address] , [place] [address] Faye Cuevas MD, PhD - Tobacco Feeder Catcher Blood Venous blood specimen / Unknown Venipuncture / Unknown 01/04/2025 10:21 AM EST 01/04/2025 10:21 AM EST Percy Maher MD LAB BLOOD ORDERABLES Final R esult [facility] [address] [place] [address] * (ABNORMAL) Beta 2 microglobulin, serum (01/04/2025 10:21 AM EST) Pathologist [facility] Beta-2 Microglobulin 3.2(H) 1.0 - 2.4 mg/L 01/04/2025 3:30 PM EST [facility] Blood Venous blood specimen / Unknown Venipuncture / Unknown 01/04/2025 10:21 AM EST 01/04/2025 10:21 AM EST Percy Maher MD LAB BLOOD ORDERABLES Final R esult [facility] [address] [place] [address], * CT Chest wo Contrast (12/27/2024 8:22 AM EST) Anatomical Region Laterality Modality Body Computed Tomogra phy 01/03/2025 11:1 6 AM EST Impressions 01/03/2025 12:06 PM EST 1. New right paratracheal and right hilar lymphadenopathy. Although the findings could be reactive, suspicion is raised for neoplastic disease. Site of origin is not established on this study. 2. No suspicious pulmonary nodule or mass. Results communicated via the secure text messaging system to Dr. Maher. A FYI message has been communicated to the office of PERCY MAHER via the [employer] on 01/03/2025 12:06 PM, Message ID [id number]. -------- FINAL REPORT -------- Dictated By: Ten Kimbrough Dictated Date: 01/03/2025 11:16 ET Assigned Physician: Ten Kimbrough Reviewed and Electronically Signed By: Ten Kimbrough Signed Date: 01/03/2025 12:06 ET Workstation ID: [id number] Transcribed By: Self Edit Transcribed Date: 01/03/2025 11:16 ET Narrative 01/03/2025 12:06 PM EST PROCEDURE: CT of the chest without intravenous contrast. TECHNIQUE: CT of the chest without intravenous contrast administration. Coronal and sagittal reformats and MIP reconstructions were created. Dose length product: 858 mGy-cm. HISTORY: Shortness of breath. Pulmonary nodules. COMPARISON: 10/12/2019. FINDINGS: LUNGS/PLEURA: There is a small amount of aspirated debris in both mainstem bronchi. Mild centrilobular and paraseptal emphysema. Linear bands of scarring and/or atelectasis in the right lower lobe and inferior lingula. There is a small amount of patchy groundglass opacity in the anterior-inferior right upper lobe (series 4, image 152), which could represent a focal infectious/inflammatory process. New thin 3 x 1 mm nodule in the inferior right upper lobe, series 4 image 131, which could represent a focus of mucus plugging. A few calcified granulomas are noted. No pleural effusion or pneumothorax. MEDIASTINUM/YARON: Newly enlarged right paratracheal lymph node, measuring 17 mm short axis. New lymphadenopathy in the upper right hilum, difficult to measure accurately in the absence of intravenous contrast, but with a short axis measurement of approximately 2.7 cm. VASCULATURE: Normal caliber pulmonary arteries. Normal appearance of the aorta and great vessels. CARDIAC: Normal heart size. Mild mitral annular, moderate aortic annular, and severe coronary artery calcification. CHEST WALL: No axillary or supraclavicular lymphadenopathy. LIMITED ABDOMEN: Atherosclerotic calcifications. BONES: Moderate degenerative changes of the spine with findings of DISH. Prominent degenerative irregularity of the uncovertebral joints, left greater than right. Procedure Note Ten Kimbrough MD - 01/03/2025 PROCEDURE: CT of the chest without intravenous contrast. TECHNIQUE: CT of the chest without intravenous contrast administration.Coronal and sagittal reformats and MIP reconstructions were created. Dose length product: 858 mGy-cm. HISTORY: Shortness of breath. Pulmonary nodules. COMPARISON: 10/12/2019. FINDINGS: LUNGS/PLEURA: There is a small amount of aspirated debris in both mainstembronchi. Mild centrilobular and paraseptal emphysema. Linear bands ofscarring and/or atelectasis in the right lower lobe and inferior lingula.There is a small amount of patchy groundglass opacity in theanterior-inferior right upper lobe (series 4, image 152), which couldrepresent a focal infectious/inflammatory process. New thin 3 x 1 mmnodule in the inferior right upper lobe, series 4 image 131, which couldrepresent a focus of mucus plugging. A few calcified granulomas arenoted. No pleural effusion or pneumothorax. MEDIASTINUM/YARON: Newly enlarged right paratracheal lymph node, [id number] mm short axis. New lymphadenopathy in the upper right hilum, difficultto measure accurately in the absence of intravenous contrast, but with ashort axis measurement of approximately 2.7 cm. VASCULATURE: Normal caliber pulmonary arteries. Normal appearance of theaorta and great vessels. CARDIAC: Normal heart size. Mild mitral annular, moderate aortic annular,and severe coronary artery calcification. CHEST WALL: No axillary or supraclavicular lymphadenopathy. LIMITED ABDOMEN: Atherosclerotic calcifications. BONES: Moderate degenerative changes of the spine with findings of DISH.Prominent degenerative irregularity of the uncovertebral joints, leftgreater than right. IMPRESSION: 1. New right paratracheal and right hilar lymphadenopathy. Although thefindings could be reactive, suspicion is raised for neoplastic disease.Site of origin is not established on this study. 2. No suspicious pulmonary nodule or mass. Results communicated via the secure text messaging system to . A [employer] message has been communicated to the office of PERCY MAHER viathe [employer] on 01/03/2025 12:06 PM,Message ID [id number]. -------- FINAL REPORT -------- Dictated By: Ten Kimbrough Dictated Date: 01/03/2025 11:16 ET Assigned Physician: Ten Kimbrough Reviewed and Electronically Signed By: Ten Kimbrough Signed Date: 01/03/2025 12:06 ET Workstation ID: [id number] Transcribed By: Self Edit Transcribed Date: 01/03/2025 11:16 ET Percy Maher MD IMG CT PROCEDURES Final Resu lt * MR Lumbar Spine wo Contrast (12/10/2024 [...] Signed Date: 12/13/2024 12:55 ET Workstation ID: [id number] Transcribed By: Self Edit Transcribed Date: 12/13/2024 [...] Signed Date: 12/13/2024 12:55 ET Workstation ID: [id number] Transcribed By: Self Edit Transcribed Date: 12/13/2024 12:45 ET Jw LYN IMG MRI PROCEDURES Final Resul [...] Signed Date: 11/29/2024 12:52 ET Workstation ID: [id number] Transcribed By: Self Edit Transcribed Date: 11/29/2024 [...] Signed Date: 11/29/2024 12:52 ET Workstation ID: [id number] Transcribed By: Self Edit Transcribed Date: 11/29/2024 [...] Signed Date: 10/25/2024 09:46 ET Workstation ID: [id number] Transcribed By: Self Edit Transcribed Date: 10/25/2024 [...] Signed Date: 10/25/2024 09:46 ET Workstation ID: [id number] Transcribed By: Self Edit Transcribed Date: 10/25/2024 09:25 ET Zbigniew LYN IMG XR PROCEDURES Final Result * (ABNORMAL) Comprehensive metabolic panel (10/25/2024 8:59 AM EDT) Sodium 138 133 - 145 mmol/L LAB CHEMISTRY METHOD 10/25/2024 12:21 PM EDT [facility] Potassium 4.5 3.5 - 5.5 mmol/L LAB CHEMISTRY METHOD 10/25/2024 12:21 PM EDT [facility] Chloride 106 96 - 110 mmol/L LAB CHEMISTRY METHOD 10/25/2024 12:21 PM EDT [facility] CO2 27 21 - 32 mmol/L LAB CHEMISTRY METHOD 10/25/2024 12:21 PM [facility] Anion Gap 5 3 - 11 LAB CHEMISTRY METHOD 10/25/2024 12:21 PM [facility] Glucose 102(H) 70 - 100 mg/dL LAB CHEMISTRY METHOD 10/25/2024 12:21 PM [facility] BUN 18 5 - 25 mg/dL LAB CHEMISTRY METHOD 10/25/2024 12:21 PM [facility] Creatinine 1.08 0.70 - 1.30 mg/dL LAB CHEMISTRY METHOD 10/25/2024 12:21 PM [facility] eGFR 70 >=60 mL/min/1. 73m2 LAB CHEMISTRY METHOD 10/25/2024 12:21 PM [facility] Comment:Calculation based on the Chronic Kidney Disease Epidemiology Collaboration (CKD-EPI) equation refit without adjustment for race. BUN/Creatinine Ratio 16.7 LAB CHEMISTRY METHOD 10/25/2024 12:21 PM [facility] Calcium 9.1 8.5 - 10.5 mg/dL LAB CHEMISTRY METHOD 10/25/2024 12:21 PM [facility] AST (SGOT) 18 10 - 42 unit/L LAB CHEMISTRY METHOD 10/25/2024 12:21 PM [facility] ALT (SGPT) 24 10 - 60 unit/L LAB CHEMISTRY METHOD 10/25/2024 12:21 PM [facility] Alkaline Phosphatase 91 42 - 121 unit/L LAB CHEMISTRY METHOD 10/25/2024 12:21 PM [facility] Total Protein 6.6 6.0 - 8.0 g/dL LAB CHEMISTRY METHOD 10/25/2024 12:21 PM [facility] Albumin 3.7 3.2 - 5.0 g/dL LAB CHEMISTRY METHOD 10/25/2024 12:21 PM EDT [facility] Total Bilirubin 0.8 0.0 - 1.4 mg/dL LAB CHEMISTRY METHOD 10/25/2024 12:21 PM EDT [facility] Blood Venous blood specimen / Unknown Venipuncture / Unknown 10/25/2024 8:59 AM EDT 10/25/2024 8:59 AM EDT us Zbigniew LYN LAB BLOOD ORDERABLES Fi nal Result [facility] [address] [place] [address], [place] [phone] * Vascular US duplex carotid bilateral (10/19/2024 [...] the residual internal carotid diameter with [place] Symptomatic Carotid Endarterectomy Trial (NASCET)-based stenosis levels and velocity criteria are extrapolated from diameter data as defined by the Society of Radiologists in Ultrasound Consensus Conference Radiology 2003; 229;340-346.? Telerad RIKI ([id number]) -------- FINAL REPORT -------- Dictated By: Gracie Laughlin Dictated Date: 10/26/2024 14:29 ET Assigned Physician: Gracie Laughlin Reviewed and Electronically Signed By: Gracie Laughlin Signed Date: 10/26/2024 14:44 ET Workstation ID: [id number] Transcribed By: Self Edit Transcribed Date: 10/26/2024 [...] Society of Radiologists in Ultrasound Consensus Conference [id number]; 229;340-346.? Telerad PA ([id number]) -------- FINAL REPORT -------- Dictated By: Gracie Laughlin Dictated Date: 10/26/2024 14:29 ET Assigned Physician: Gracie Laughlin Reviewed and Electronically Signed By: Gracie Laughlin Signed Date: 10/26/2024 14:44 ET Workstation ID: [id number] Transcribed By: Self Edit Transcribed Date: 10/26/2024 14:29 ET Jyothi Dacosta MD CV VASCULAR PROCEDURES Fi nal Result * Depression Screening (10/29/2023) [facility] Depression Screening Abstracted [facility] Provider HEALTH MAINTENANCE Final Result * Lipid panel (04/11/2022) [facility] LDL/HDL Ratio 2 0 - 4 Triglycerides 49 0 - 150 mg/dL Cholesterol 121 0 - 200 mg/dL HDL 73 >=40 mg/dL LDL Cholesterol 39 0 - 100 mg/dL Blood Venous blood specimen / Unknown Result [facility] Historical Provider LAB BLOOD ORDERABLES Kandy l Result * Hepatitis C Screening (01/11/2018) [facility] Hepatitis C Screening Abstracted Result [facility] Provider HEALTH MAINTENANCE Final Result from Last 3 Months or Most Recently Relevant to Health Maintenance Insurance MEDICARE [facility] Care Teams Radiology Receptionist Relationship Specialty Start Date End Date Chana Rivera DO [address] [place] [address] PCP - General Internal Medicine 12/23/23
--- OUTSIDE RECORDS SUMMARY | 2025-01-10 10:53 | XMS_ITS | Encounter Summary ---
Author Organization [facility] Address [address] [place] [address] Care Team Providers Care Farm Machinery Set Up Mechanic Name Role Phone MarvChana gomez Primary Care Provider [phone] Encounter Details Date Type Department Care Team (Late Contact Info) Description 01/03[facility] [address] [facility] [address] [place] [address] Julio Maher MD [address] [place] [phone] Social History Tobacco Use Types Packs/Day Years [...] AM EST documented as of this encounter Plan of Treatment Upcoming Encounters Date Type Department Care Team (Late Contact Info) Description 01/13/2025 8:00 AM EST [facility] [address] [facility] [address] [place] [phone] Bisi Jasmine MD [address] [place] [address] 01/16/2025 10:30 AM EST Treatment [address] [phone] Rayray Brar, PT [address] [place] [address] 01/19/2025 10:30 AM EST Treatment [address] [phone] Rayray Brar, PT [address] [place] [address] 01/23/2025 10:30 AM EST Treatment [address] [address] Herb Morris, MARKETING COMM[employer]IAISON 01/26/2025 10:00 AM EST Treatment [address] [phone] Herb oMrris, MARKETING COMMUNITY LIAISON 01/30/2025 10:30 AM EST Treatment [address] [phone] Herb Morris, MARKETING COMMUNITY [employer]IAISON 02/01/2025 10:30 AM EST Treatment [address] [address] Rayray Brar, PT [address] [place] [address] 02/06/2025 9:00 AM EST Office Visit Pulmonology [address] [phone] Julio Maher MD [address] [place] [phone] 02/06/2025 10:45 AM EST Treatment [address] [phone] Rayray Brar, PT [address] [place] [address] 02/08/2025 10:30 AM EST Treatment [facility] [place] [address] [facility] [address] [place] [phone] Rayray Brar, PT [address] [place] [address] 02/22/2025 1:00 PM EST Appointment [facility] Ultrasound [address] [place] [phone] 03/01/2025 9:30 AM EST Office Visit Pulmonology - [place] [address] [facility] [address] [place] [address] Julio Maher MD [address] [place] [phone] 03/08/2025 8:30 AM EST Office Visit Vascular Surgery - [place] [address] [facility] [address] [place] [phone] Jyothi Dacosta MD [address] [place] [phone] 04/24/2025 8:00 AM EDT Office Visit Internal Medicine - [facility] [address] [place] [address] Zbigniew Mccollum PA [address] [place] [address] documented as of this encounter Goals Goal Patient Goal Type Associated Problems Recent Progress Patient-Stated? Author move my neck better and the neck pain to go away General Yes Rayray Brar, PT PT STG x 8 visits from [facility] on 01/02/2025 General No Rayray Brar, PT Note: [x] = goal MET [] = goal NOT MET [] Pt will improve C rotation to 48 deg B to aid in looking over shoulder, [] Pt will improve deep neck flexor strength to 10 seconds from 2 sec PT LTG x 15 visits from [facility] 01/02/2025 Rayray Poole, PT Note: [x] = goal MET [] = goal NOT MET [] Pt will be able to look over B shoulder without requiring trunk rotation, [] Pt will be able to look overhead for things such as placing/retrieving items on top shelf or changing light bulbs documented as of this encounter Visit Diagnoses Not on filedocumented in this encounter Additional Health Concerns Assessment Noted Time PHQ-9 Depression Total Score: 0 10/21/19 25 12:03 PM EDT documented as of this encounter Care Teams Farm Machinery Set Up Mechanic Relationship Specialty Start Date End Date Chana Rivera DO [address] [place] [address] PCP - General Internal Medicine 12/23/23 documented as of this encounter
--- OUTSIDE RECORDS SUMMARY | 2025-01-10 10:53 | XMS_ITS | Clinical Summary ---
Author Organization [facility] Address [address] [place] [address] Care Team Providers Care Powderer Name Role Phone Gaurav Bernardo MD Primary Care Provider [phone] Social History Tobacco Use Types Packs/Day Years [...] age to complete this topic Care Teams Powderer Relationship Specialty Start Date End Date Gaurav Bernardo MD [address] [place] [phone] PCP - General Internal Medicine 02/21/20
== END 2025-01-10 10:32 | disposition home or self-care (01) ==
LOC: HO.HPHYS 09:47
PROVIDERS: PCP Internal Medicine; Visit Provider Physician Assistant
DX: M54.16 Radiculopathy, lumbar region (principal); M47.816 Spondylosis without myelopathy or radiculopathy, lumbar region; M17.11 Unilateral primary osteoarthritis, right knee
CPT/HCPCS: 99214

== ENCOUNTER → 2025-01-10 09:47 | Outpatient (BNVA) | payer MEDICARE, SELFPAY | PROVIDERS: PCP Internal Medicine; Visit Provider Physician Assistant | DX: M54.16 Radiculopathy, lumbar region (principal); M47.816 Spondylosis without myelopathy or radiculopathy, lumbar region; M17.11 Unilateral primary osteoarthritis, right knee | CPT/HCPCS: 99212 ==